=== PATIENT | female | born 1965 | race Hispanic/Latino ===

== ENCOUNTER 2023-12-13 00:10 | Emergency (ER) | payer OTHER ==
[~2023-12-13] VITALS: Ht 144.8 cm; Wt 54.4 kg
[~2023-12-13 00:10] MED LIST: CEPH500B PO; INSLAN SQ; METF-890 PO
[2023-12-13 00:13] VITALS: BP 159/71; PULSE 115; RESP 20
== END 2023-12-13 01:46 ==
LOC: EDH 00:10 → EEVIPCON 00:10 → EDH 01:46
DX: Z00.00 Encounter for general adult medical examination without abnormal findings (principal); E11.9 Type 2 diabetes mellitus without complications; Z79.84 Long term (current) use of oral hypoglycemic drugs
CPT/HCPCS: 82948